=== PATIENT | male | born 1975 | race African-American/Black ===

== ENCOUNTER 2016-04-20 06:44 | Day surgery (SDC) | payer MEDICARE, OTHER ==
--- NOTE | ~2016-04-20 | EGD ---
EGD REPORT [facility] [address] [id number] NAME: PEDRO FOX : 75 STATUS : REG [facility] [place] PAT#: [id number] AGE: 40 ADM/REG DATE : 04/20/16 MR#: [id number] REPORT SERV DATE: 04/20/16 DICTATED BY: SHARMIN VAZQUEZ III DATE: 04/20/16 REPORT STATUS : Draft TRANSCRIBED BY: [facility] DATE: 04/20/16 Endoscopy Center Patient Name: Pedro Fox Date of : 1975 Attending MD: SHARMIN VAZQUEZ III, MD Procedure Date No Time: 04/20/2016 Procedure: Upper GI endoscopy Indications: Heartburn Medicines: Propofol per Anesthesia Complications: No immediate complications. Procedure: After obtaining informed consent, the endoscope was passed under direct vision. Throughout the procedure, the patient's blood pressure, pulse, and oxygen saturations were monitored continuously. The GIF [id number] was introduced through the mouth, and advanced to the third part of duodenum. The upper GI endoscopy was accomplished with ease. The patient tolerated the procedure well. Findings: The examined esophagus was normal. The RAMIREZ capsule with delivery system was introduced through the mouth and advanced into the esophagus, such that the RAMIREZ pH capsule was positioned 38 cm from the incisors, which was 6 cm proximal to the EG junction. The RAMIREZ pH capsule was then deployed and attached to the esophageal mucosa. The delivery system was then withdrawn. Endoscopy was utilized for probe placement and diagnostic evaluation. A small hiatus hernia was present. A few localized, small non-bleeding erosions were found in the gastric antrum. There were no stigmata of recent bleeding. Biopsies were taken with a cold forceps for histology. Patchy mildly erythematous mucosa without active bleeding and with no stigmata of bleeding was found in the second part of the duodenum. Biopsies were taken with a cold forceps for histology. Impression: - Normal esophagus. - Hiatus hernia. - Non-bleeding erosive gastropathy. Biopsied. - Erythematous duodenopathy. Biopsied. - The RAMIREZ pH capsule was deployed. Recommendation: - Patient has a contact number available for emergencies. The signs and symptoms of potential delayed complications were discussed with the patient. Return to normal activities tomorrow. Written discharge EGD REPORT [place] [id number] [facility] [place]. [address] NAME: PEDRO FOX : [birth year] STATUS : REG [facility] [place] PAT#: [id number] AGE: 40 ADM/REG DATE : 04/20/16 MR#: [id number] REPORT SERV DATE: 04/20/16 DICTATED BY: SHARMIN VAZQUEZ III DATE: 04/20/16 REPORT STATUS : Draft [facility] BY: [facility] DATE: 04/20/16 instructions were provided to the patient. - Discharge patient to home. - Return to previous diet. - Follow an antireflux regimen. - Continue present medications. - Await pathology results. Procedure Code(s): --- Professional --- 26724, Esophagogastroduodenoscopy, flexible, transoral; with biopsy, single or multiple Diagnosis Code(s): --- Professional --- K44.9, Diaphragmatic hernia without obstruction or gangrene K31.9, Disease of stomach and duodenum, unspecified K31.89, Other diseases of stomach and duodenum R12, Heartburn CPT copyright 2013 [employer]. All rights reserved. The codes documented in this report are preliminary and upon wash tub machine operator review may be revised to meet current compliance requirements. SHARMIN VAZQUEZ III, MD 04/20/2016 8:24 AM This report has been signed electronically. Number of Addenda: 0 Note Initiated On: 04/20/2016 8:22 AM [address] [id number]
[~2016-04-20 06:44] MED LIST: ACET500CAP PO; ASA5GR PO; GLUCPH PO; HYDROCHLOROT25 MG PO; KEPPRA1000 MG PO; LAMICTAL10 PO; LAMICTAL150 MG PO; LOP25 PO; NORV5 PO; PRILOSEC40 MG PO; PRIN20 PO; PRIN5 PO; PROTONIX PO; VIMPAT100 MG PO; VIMPAT200 MG PO; VITD PO
== END 2016-04-20 23:59 | disposition home or self-care (01) ==
LOC: DMU 06:44
PROVIDERS: Internal Medicine Gastroenterology
PROC: 0DB98ZX Excision of Duodenum, Via Natural or Artificial Opening Endoscopic, Diagnostic (ICD-10-PCS; 2016-04-20)
PROC: 0DJ07ZZ Inspection of Upper Intestinal Tract, Via Natural or Artificial Opening (ICD-10-PCS; 2016-04-20)
PROC: 0DB68ZX Excision of Stomach, Via Natural or Artificial Opening Endoscopic, Diagnostic (ICD-10-PCS; principal; 2016-04-20 08:00)
DX: K31.9 Disease of stomach and duodenum, unspecified (principal); K31.89 Other diseases of stomach and duodenum; R12 Heartburn; K44.9 Diaphragmatic hernia without obstruction or gangrene; I10 Essential (primary) hypertension; K21.9 Gastro-esophageal reflux disease without esophagitis; F17.210 Nicotine dependence, cigarettes, uncomplicated; J30.2 Other seasonal allergic rhinitis; K64.9 Unspecified hemorrhoids; K76.0 Fatty (change of) liver, not elsewhere classified; E11.9 Type 2 diabetes mellitus without complications; Z98.890 Other specified postprocedural states; Z79.899 Other long term (current) drug therapy; Z79.84 Long term (current) use of oral hypoglycemic drugs; R56.9 Unspecified convulsions
CPT/HCPCS: 82962; 88305; 91035

== ENCOUNTER 2016-05-19 08:35 | Day surgery (SDC) | payer MEDICARE, OTHER | END 2016-05-19 23:59 | disposition home or self-care (01) | LOC: DMU 08:35 | PROVIDERS: Internal Medicine Gastroenterology | PROC: 4A1B88Z Monitoring of Gastrointestinal Motility, Via Natural or Artificial Opening Endoscopic (ICD-10-PCS; principal; 2016-05-19 09:00) | DX: K21.9 Gastro-esophageal reflux disease without esophagitis (principal); I10 Essential (primary) hypertension; Z79.899 Other long term (current) drug therapy | CPT/HCPCS: A9270-GY; C1894 ==